=== PATIENT | female | born 1970 | race Caucasian/White ===

== ENCOUNTER 2022-05-21 10:23 | Day surgery (SDC) | payer BC ==
[2022-05-21] MEDS ORDERED: Propofol 200 MG/20 ML SDV IV ONE (10:24)
[2022-05-21] MEDS ORDERED: Lactated Ringers 1,000 ML IV SCH (10:30)
[2022-05-21] MEDS ORDERED: Sodium Chloride 0.9% 10 ML Syringe FLUSH PRN (10:30)
[2022-05-21] MEDS ORDERED: Propofol 200 MG/20 ML SDV ONE ×2 (11:14→11:54)
[2022-05-21] MEDS ORDERED: Midazolam 1 MG/ML 2 ML SDV ONE (11:14)
== END 2022-05-21 13:35 | disposition home or self-care (01) ==
LOC: KA.SDS 10:23
PROVIDERS: ATTEND Surgery
DX: Z12.11 Encounter for screening for malignant neoplasm of colon (principal); Z80.0 Family history of malignant neoplasm of digestive organs; Z88.5 Allergy status to narcotic agent; Z88.8 Allergy status to other drugs, medicaments and biological substances; Z88.2 Allergy status to sulfonamides; Z88.6 Allergy status to analgesic agent; Z79.899 Other long term (current) drug therapy
CPT/HCPCS: 45378; 81025; J2250; J2704; J7120